=== PATIENT | male | born 1995 | race Two or more races ===

== ENCOUNTER 2019-04-16 22:38 | Emergency (ER) | payer OTHER ==
[~2019-04-16] VITALS: Ht 177.8 cm; Wt 99.8 kg
== END 2019-04-17 02:16 | disposition home or self-care (01) ==
LOC: ER 22:38
DX: R42 Dizziness and giddiness (principal)

== ENCOUNTER 2023-08-08 18:15 | Emergency (ER) | payer OTHER ==
[~2023-08-08] VITALS: Ht 152.4 cm; Wt 120.2 kg
[2023-08-08 19:02] LABS: HEMATOCRIT 41.5 % (39.0-48.0); HEMOGLOBIN 13.7 g/dL (13-16.00); MEAN CELL VOLUME 82.4 fL (80.0-100.00); MEAN CORPUSCULAR HEMOGLOBIN 27.2 pg (27.00-32.0); PLATELET COUNT 168 K/uL (150-450); RED BLOOD COUNT 5.04 M/uL (4.00-6.00); RED CELL DISTRIBUTION WIDTH 13.5 % (11.5-14.5)
[2023-08-08 19:16] LABS: CALCIUM 8.8 mg/dL (8.5-10.1); CREATININE SERUM 0.88 mg/dL (0.70-1.30); GFR 104.68; POTASSIUM 3.72 mEq/L (3.5-5.1)
== END 2023-08-08 22:12 | disposition home or self-care (01) ==
LOC: ER 18:15
PROVIDERS: Emergency Medicine
DX: R42 Dizziness and giddiness (principal)

== ENCOUNTER 2023-10-11 03:53 | Inpatient (IN) | payer OTHER ==
[~2023-10-11] VITALS: Ht 167.6 cm; Wt 115.7 kg
[2023-10-11] MEDS ORDERED: TOPROL XL50 M1 PO (04:01)
[2023-10-11 05:20] LABS: HEMOGLOBIN 15.9 g/dL (13-16.00); MEAN CELL VOLUME 82.1 fL (80.0-100.00); MEAN CORPUSCULAR HEMOGLOBIN 27.8 pg (27.00-32.0); MEAN CORPUSCULAR HGB CONC 33.9 g/dl (32.0-36.0); PLATELET COUNT 187 K/uL (150-450); RED BLOOD COUNT 5.72 M/uL (4.00-6.00); RED CELL DISTRIBUTION WIDTH 14.1 % (11.5-14.5)
[2023-10-11 05:34] LABS: PH,URINE 5.5 (5.0-8.0); URINE APPEARANCE Clear; URINE BILIRRUBIN Negative (NEGATIVE); URINE BLOOD Negative; URINE COLOR Yellow; URINE GLUCOSE Negative (NEGATIVE); URINE LEUKOCYTE Negative; URINE NITRATE Negative; URINE PROTEIN Negative (NEGATIVE); URINE UROBILINOGEN 0.2 E.U./dl
[2023-10-11 05:36] LABS: INR 0.97; PROTHROMBIN TIME 10.2 SECONDS (9.0-11.5)
[2023-10-11 05:41] LABS: URINE BACTERIA 1.2 uL (0.0-1933); URINE EPITHELIAL CELLS 0.1 uL (0.0-38.8); URINE RBC 0.1 uL (0.0-20.8); URINE WBC 0.4 uL (0.0-23.2)
[2023-10-11 05:41] LABS: ALBUMIN 4.2 gm/dL (3.4-5.0); BILIRUBIN TOTAL 0.36 mg/dL (0.3-1.2); CALCIUM 8.9 mg/dL (8.5-10.1); CREATININE SERUM 0.9 mg/dL (0.70-1.30); GLOBULINA 3.1 G/DL (2.4-3.5); POTASSIUM 3.69 mEq/L (3.5-5.1); TOTAL PROTEIN 7.3 gm/dL (6.4-8.2)
[2023-10-11 05:49] LABS: PARTIAL THROMBOPLASTIN TIME < 20.0 SECONDS (22.0-34.0)
[2023-10-11 14:23] LABS: INR 1.13; PARTIAL THROMBOPLASTIN TIME 33.7 SECONDS (22.0-34.0); PROTHROMBIN TIME 11.8 SECONDS (9.0-11.5)
== END 2023-10-13 14:02 | disposition home or self-care (01) | DRG 310 ==
LOC: ER 03:53 → MEDI 13:32
PROVIDERS: General Practice; ADMIT Internal Medicine; ATTEND Internal Medicine
PROC: 5A2204Z Restoration of Cardiac Rhythm, Single (ICD-10-PCS; principal; 2023-10-11)
PROC: 4A12X4Z Monitoring of Cardiac Electrical Activity, External Approach (ICD-10-PCS; 2023-10-11)
DX: I48.20 Chronic atrial fibrillation, unspecified (principal); F10.20 Alcohol dependence, uncomplicated; E66.8 Other obesity

== ENCOUNTER 2023-12-28 05:13 | Emergency (ER) | payer OTHER ==
[~2023-12-28] VITALS: Ht 172.7 cm; Wt 120.2 kg
[~2023-12-28 05:13] MED LIST: TOPROL XL50 M1 PO
[2023-12-28] MEDS ORDERED: 0.9 % SODIUM CHLORIDE 1,000 ML IV STA (08:23)
[2023-12-28] MEDS ORDERED: FAMOTIDINE/PF 20 MG/2 ML VIAL IV STA (08:23)
[2023-12-28 09:14] LABS: HEMATOCRIT 46.3 % (39.0-48.0); HEMOGLOBIN 15.7 g/dL (13-16.00); MEAN CORPUSCULAR HEMOGLOBIN 27.4 pg (27.00-32.0); MEAN CORPUSCULAR HGB CONC 33.8 g/dl (32.0-36.0); PLATELET COUNT 177 K/uL (150-450); RED BLOOD COUNT 5.72 M/uL (4.00-6.00); RED CELL DISTRIBUTION WIDTH 13.9 % (11.5-14.5)
[2023-12-28 10:24] LABS: URINE APPEARANCE Clear; URINE BILIRRUBIN Negative (NEGATIVE); URINE BLOOD Negative; URINE COLOR Yellow; URINE GLUCOSE Negative (NEGATIVE); URINE LEUKOCYTE Negative; URINE NITRATE Negative; URINE PROTEIN Negative (NEGATIVE); URINE UROBILINOGEN 0.2 E.U./dl
[2023-12-28 10:30] LABS: URINE BACTERIA 0 uL (0.0-1933); URINE EPITHELIAL CELLS 0.1 uL (0.0-38.8); URINE RBC 0.1 uL (0.0-20.8); URINE WBC 0.5 uL (0.0-23.2)
[2023-12-28 11:00] LABS: ALBUMIN 4.1 gm/dL (3.4-5.0); BILIRUBIN TOTAL 0.57 mg/dL (0.3-1.2); CALCIUM 9.3 mg/dL (8.5-10.1); CREATININE SERUM 0.92 mg/dL (0.70-1.30); GFR 99.45; GLOBULINA 2.8 G/DL (2.4-3.5); POTASSIUM 3.86 mEq/L (3.5-5.1); TOTAL PROTEIN 6.9 gm/dL (6.4-8.2)
[2023-12-28] MEDS ORDERED: PEPCID20 MG PO (12:35)
== END 2023-12-28 13:35 | disposition home or self-care (01) ==
LOC: ER 05:13
PROVIDERS: General Practice
DX: K52.89 Other specified noninfective gastroenteritis and colitis (principal); I48.91 Unspecified atrial fibrillation; Z88.6 Allergy status to analgesic agent

== ENCOUNTER → 2024-10-28 | Emergency (ER) | payer OTHER ==
[~2024-10-28] VITALS: Ht 180.3 cm; Wt 115.7 kg
[~2024-10-28] MED LIST changes: +ORPHENADRINE CITRATE 30 MG/ML AMPUL ONE; +PEPCID20 MG PO
== END | disposition left against medical advice (07) ==
LOC: ER 05:28
DX: Z53.21 Procedure and treatment not carried out due to patient leaving prior to being seen by health care provider (principal)

== ENCOUNTER 2024-12-14 04:56 | Emergency (ER) | payer OTHER ==
[~2024-12-14] VITALS: Ht 180.3 cm; Wt 113.4 kg
[~2024-12-14 04:56] MED LIST changes: -ORPHENADRINE CITRATE 30 MG/ML AMPUL ONE
[2024-12-14] MEDS ORDERED: FAMOTIDINE/PF 20 MG/2 ML VIAL IV PUSH STA (06:14)
[2024-12-14] MEDS ORDERED: PROMETHAZINE HCL 50 MG/ML AMPUL IM STA (06:14)
[2024-12-14] MEDS ORDERED: 0.9 % SODIUM CHLORIDE 1,000 ML IV ONE (06:15)
[2024-12-14] MEDS ORDERED: FAMOTIDINE/PF 20 MG/2 ML VIAL ONE (06:39)
[2024-12-14] MEDS ORDERED: PROMETHAZINE HCL 50 MG/ML AMPUL IM ONE (06:39)
[2024-12-14 06:44] LABS: HEMATOCRIT 45.8 % (39.0-48.0); HEMOGLOBIN 15.5 g/dL (13-16.00); MEAN CELL VOLUME 82.7 fL (80.0-100.00); MEAN CORPUSCULAR HGB CONC 33.8 g/dl (32.0-36.0); PLATELET COUNT 159 K/uL (150-450); RED BLOOD COUNT 5.53 M/uL (4.00-6.00); RED CELL DISTRIBUTION WIDTH 13.5 % (11.5-14.5)
[2024-12-14 07:19] LABS: ALBUMIN 4.2 gm/dL (3.4-5.0); BILIRUBIN TOTAL 0.39 mg/dL (0.3-1.2); CALCIUM 9.2 mg/dL (8.5-10.1); CREATININE SERUM 0.99 mg/dL (0.70-1.30); GFR 90.68; GLOBULINA 3.3 G/DL (2.4-3.5); POTASSIUM 4.12 mEq/L (3.5-5.1); TOTAL PROTEIN 7.5 gm/dL (6.4-8.2)
[2024-12-14 08:24] LABS: PH,URINE 5.5 (5.0-8.0); URINE APPEARANCE Clear; URINE BILIRRUBIN Negative (NEGATIVE); URINE BLOOD Negative; URINE COLOR Yellow; URINE GLUCOSE Negative (NEGATIVE); URINE KETONE Negative (NEGATIVE); URINE LEUKOCYTE Negative; URINE NITRATE Negative; URINE PROTEIN Negative (NEGATIVE); URINE UROBILINOGEN 0.2 E.U./dl
[2024-12-14 08:26] LABS: URINE BACTERIA 1.2 uL (0.0-1933); URINE RBC 0.2 uL (0.0-20.8)
== END 2024-12-14 10:44 | disposition home or self-care (01) ==
LOC: ER 04:59
PROVIDERS: General Practice
DX: R42 Dizziness and giddiness (principal); R11.10 Vomiting, unspecified; I10 Essential (primary) hypertension; Z88.6 Allergy status to analgesic agent

== ENCOUNTER → 2025-01-30 | Emergency (ER) | payer OTHER ==
[~2025-01-30] VITALS: Ht 180.3 cm; Wt 120.2 kg
[2025-01-30 20:12] VITALS: BP 155/82; O2SAT 99
== END | disposition left against medical advice (07) ==
LOC: ER 19:21
DX: Z53.21 Procedure and treatment not carried out due to patient leaving prior to being seen by health care provider (principal)